=== PATIENT | male | born 1950 | race Caucasian/White ===

== ENCOUNTER 2020-09-16 10:06 | Day surgery (SDC) | payer MEDICARE, OTHER ==
[2020-09-16] MEDS ORDERED: LACTATED RINGERS 1,000 ML IV ONE ×2 (10:33→12:38)
[2020-09-16] MEDS ORDERED: MIDAZOLAM 2 MG/2 ML VIAL ONE ×2 (11:33→11:42)
[2020-09-16] MEDS ORDERED: fentaNYL 250 MCG/5 ML VIAL ONE (11:33)
[2020-09-16 12:32] VITALS: BP 120/96
== END 2020-09-16 10:07 | disposition home or self-care (01) ==
LOC: SDS 10:06
PROVIDERS: ATTEND Surgery
PROC: 0DBL8ZX Excision of Transverse Colon, Via Natural or Artificial Opening Endoscopic, Diagnostic (ICD-10-PCS; principal; 2020-09-16 11:15)
DX: Z12.11 Encounter for screening for malignant neoplasm of colon (principal); D12.3 Benign neoplasm of transverse colon; K57.30 Diverticulosis of large intestine without perforation or abscess without bleeding; D17.79 Benign lipomatous neoplasm of other sites; Z87.891 Personal history of nicotine dependence
CPT/HCPCS: 45380; 45385; J3010; J7120